=== PATIENT | male | born 1940 | race African-American/Black ===

== ENCOUNTER 2019-01-19 15:55 | Inpatient (IN) | payer OTHER ==
[~2019-01-19] VITALS: Ht 185.4 cm; Wt 93.4 kg
[2019-01-19] MEDS ORDERED: Solu-MEDROL 125mg Inj IVP ONE (16:00)
[2019-01-19] MEDS ORDERED: Ipratropium 0.02% Inh Soln 2.5ml UD HHN ONE (16:00)
--- NOTE | 2019-01-19 16:05 | NUR ---
ED Nurse Note: Patient wheelchaired into ED from home, c/o of shortness of breath and chest tightness. patient denies any pain. a/o x4.
[2019-01-19] MEDS ORDERED: VIAGRA100 MG PO (16:07)
[2019-01-19] MEDS ORDERED: SYMBICORT 1601 PUFFS INH (16:07)
[2019-01-19] MEDS ORDERED: POTASSIUM CL 225 MEQ PO (16:07)
[2019-01-19] MEDS ORDERED: PREDNISONE20 MG ORAL (16:07)
[2019-01-19] MEDS ORDERED: PROAIR HFA8.5 GM INH (16:07)
--- NOTE | 2019-01-19 16:07 | Emergency Room Report ---
History of Present Illness General Chief Complaint: Dyspnea/Respdistress Source: Patient Present Illness HPI Patient presents with several days worsening dyspnea and wheezing. He has a nonproductive cough at this time. He denies fevers or chills. He is not taking prednisone at this time. This is not his worst attack. When he was last seen for an attack this bad they wanted to keep him at [facility] however he left the hospital because they didn't have any beds at that time. Denies nausea , vomiting, diarrhea. He denies any calf pain or edema. He also denies chest pain at this time. He's been using his nebulizer frequently today and has not been helping. No NVD, dysuria, calf pain, edema, joint pain, headache, depression. Allergies: Coded Allergies: No Known Allergies (Unverified , 01/19/19) Patient History Past Medical History: see triage record Social History: Denies: smoking - smoked 5 years in the 60s Social History Narrative Reviewed Nursing Documentation: PMH: Agreed; PSxH: Agreed Nursing Documentation-PMH Past Medical History: No History, Except For Hx Hypertension: Yes Hx Asthma: Yes Review of Systems All Other Systems: negative except mentioned in HPI Physical Exam Vital Signs Date Time Temp Pulse Resp B/P (MAP) Pulse Ox O2 Delivery O2 Flow Rate FiO2 01/19/19 15:56 97.3 117 25 149/85 95 Room Air Sp02 EP Interpretation: reviewed, normal General Appearance: well appearing, no apparent distress, GCS 15 Head: normocephalic, atraumatic Eyes: bilateral eye normal inspection, bilateral eye PERRL, bilateral eye EOMI ENT: moist mucus membranes Neck: supple Respiratory: no respiratory distress, no retraction, no accessory muscle use, wheezing, expiration, inspiration Cardiovascular #1: tachycardia Cardiovascular #2: 2+ radial (R) Gastrointestinal: normal inspection, normal bowel sounds, non tender, no mass, non-distended Musculoskeletal: back normal, gait/station normal, normal range of motion, no calf tenderness Neurologic: alert, oriented x3, grossly normal Psychiatric: mood/affect normal Skin: normal inspection, warm/dry Medical Decision Making Diagnostic Impression: Primary Impression: COPD exacerbation Additional Impressions: Leukocytosis Qualified Codes: D72.828 - Other elevated white blood cell count Hypokalemia ER Course Patient presents with dyspnea, cough and wheezing. Differential includes acute microinfarction, COPD exacerbation, influenza, asthma exacerbation amongst others. Patient be evaluated with EKG, chest x-ray and labs. He'll be treated with breathing treatments and a methylprednisolone. EKG was sinus tachycardia left axis deviation nonspecific ST-T wave changes. Chest x-ray without definitive infiltrates. Leukocytosis. Elevated lactate. Based on elevated lactate and leukocytosis azithromycin is begun. Improved, still coughing, lungs clear. Discussed with Dr. Oneal. Admit telemetry. Laboratory Tests Test 01/19/19 16:04 01/19/19 17:49 01/19/19 18:15 White Blood Count 15.9 K/UL (4.8-10.8) H Red Blood Count 5.13 M/UL (4.70-6.10) Hemoglobin 16.2 G/DL (14.2-18.0) Hematocrit 47.6 % (42.0-52.0) Mean Corpuscular Volume 93 FL (80-99) Mean Corpuscular Hemoglobin 31.6 PG (27.0-31.0) H Mean Corpuscular Hemoglobin Concent 34.1 G/DL (32.0-36.0) Red Cell Distribution Width 11.1 % (11.6-14.8) L Platelet Count 251 K/UL (150-450) Mean Platelet Volume 6.1 FL (6.5-10.1) L Neutrophils (%) (Auto) 73.4 % (45.0-75.0) Lymphocytes (%) (Auto) 14.9 % (20.0-45.0) L Monocytes (%) (Auto) 7.9 % (1.0-10.0) Eosinophils (%) (Auto) 2.6 % (0.0-3.0) Basophils (%) (Auto) 1.2 % (0.0-2.0) Prothrombin Time 10.7 SEC (9.30-11.50) Prothrombin Time INR 1.0 (0.9-1.1) PTT 27 SEC (23-33) Sodium Level 141 MMOL/L (136-145) Potassium Level 3.1 MMOL/L (3.5-5.1) L Chloride Level 102 MMOL/L (98-107) Carbon Dioxide Level 27 MMOL/L (21-32) Anion Gap 12 mmol/L (5-15) Blood Urea Nitrogen 19 mg/dL (7-18) H Creatinine 1.2 MG/DL (0.55-1.30) Estimate Glomerular Filtration Rate mL/min (>60) Glucose Level 103 MG/DL (74-106) Lactic Acid Level 2.40 mmol/L (0.4-2.0) H 2.10 mmol/L (0.66-2.22) Calcium Level 9.7 MG/DL (8.5-10.1) Magnesium Level 2.0 MG/DL (1.8-2.4) Total Bilirubin 0.6 MG/DL (0.2-1.0) Aspartate Amino Transferase (AST) 14 U/L (15-37) L Alanine Aminotransferase (ALT) 24 U/L (12-78) Alkaline Phosphatase 78 U/L (46-116) Total Creatine Kinase 149 U/L (26-308) Pro-B-Type Natriuretic Peptide 70 pg/mL (0-125) Total Protein 8.1 G/DL (6.4-8.2) Albumin 3.8 G/DL (3.4-5.0) Globulin 4.3 g/dL Albumin/Globulin Ratio 0.9 (1.0-2.7) L Urine Color Pale yellow Urine Appearance Clear Urine pH 5 (4.5-8.0) Urine Specific [place] 1.010 (1.005-1.035) Urine Protein Negative (NEGATIVE) Urine Glucose (UA) Negative (NEGATIVE) Urine Ketones 1+ (NEGATIVE) H Urine Blood Negative (NEGATIVE) Urine Nitrite Negative (NEGATIVE) Urine Bilirubin Negative (NEGATIVE) Urine Urobilinogen Normal MG/DL (0.0-1.0) Urine Leukocyte Esterase Negative (NEGATIVE) Microbiology Date/Time Source Procedure Growth Status 01/19/19 16:04 Nasal Nares Influenza Types A,B Antigen (GRACIELA) - Final Complete EKG Diagnostic Results Rate: tachycardiac Rhythm: NSR ST Segments: no acute changes Rhythm Strip Diag. Results EP Interpretation: yes Rhythm: no PVC's, no ectopy, other - Sinus tachycardia 111 Chest X-Ray Diagnostic Results Chest X-Ray Diagnostic Results : Chest X-Ray Ordered: Yes # of Views/Limited/Complete: 1 View Indication: Shortness of Breath EP Interpretation: Yes Interpretation: no consolidation, no effusion, no pneumothorax, other - COPD Impression: Other Electronically Signed by: Electronically signed by Lele Allen MD Last Vital Signs Date Time Temp Pulse Resp B/P (MAP) Pulse Ox O2 Delivery O2 Flow Rate FiO2 01/20/19 02:26 112 20 100 Room Air 21 01/20/19 00:00 98.2 140/79 (99) Status: improved Disposition: ADMITTED INPATIENT Condition: Serious Lele Allen MD Jan 19, 2019 16:06
[2019-01-19] MEDS: Sodium Chloride 550 ML IV SCH ×2 (16:16→19:23)
[2019-01-19] MEDS: Albuterol ud Inhalation HHN SCH ×3 (16:20→16:51)
[2019-01-19 16:22] VITALS: BP 125/82
[2019-01-19 16:30] LABS: ANION GAP 12 mmol/L (5-15); BLOOD UREA NITROGEN 19 mg/dL (7-18); CALCIUM 9.7 MG/DL (8.5-10.1); CARBON DIOXIDE 27 MMOL/L (21-32); CHLORIDE 102 MMOL/L (98-107); CREATININE 1.2 MG/DL (0.55-1.30); POTASSIUM 3.1 MMOL/L (3.5-5.1); SODIUM 141 MMOL/L (136-145)
[2019-01-19 16:34] LABS: BASOPHILS % (AUTO) 1.2 % (0.0-2.0); EOSINOPHILS % (AUTO) 2.6 % (0.0-3.0); HEMATOCRIT 47.6 % (42.0-52.0); HEMOGLOBIN 16.2 G/DL (14.2-18.0); LYMPHOCYTES % (AUTO) 14.9 % (20.0-45.0); MEAN CORPUSCULAR VOLUME 93 FL (80-99); MONOCYTES % (AUTO) 7.9 % (1.0-10.0); NEUTROPHILS % (AUTO) 73.4 % (45.0-75.0); PLATELET COUNT 251 K/UL (150-450); RED BLOOD COUNT 5.13 M/UL (4.70-6.10); RED CELL DISTRIBUTION WIDTH 11.1 % (11.6-14.8); WHITE BLOOD COUNT 15.9 K/UL (4.8-10.8)
--- NOTE | 2019-01-19 16:36 | Diagnostic Imaging Report ---
Indication: Dyspnea Comparison: 11/16/2005 A single view chest radiograph was obtained. Findings: Cardiomediastinal appearance is within normal limits for age. The lungs are clear. Pulmonary vascularity is appropriate. The diaphragmatic contour is smooth and costophrenic angles are sharp. No pleural effusions are identified. The bones are unremarkable. Impression: No acute findings
[2019-01-19 16:41] LABS: ALANINE AMINOTRANSFERASE 24 U/L (12-78); ALBUMIN 3.8 G/DL (3.4-5.0); ALBUMIN/GLOBULIN RATIO 0.9 (1.0-2.7); ALKALINE PHOSPHATASE 78 U/L (46-116); ASPARTATE AMINO TRANSFERASE 14 U/L (15-37); BILIRUBIN,TOTAL 0.6 MG/DL (0.2-1.0); CREATINE KINASE 149 U/L (26-308)
[2019-01-19] MEDS ORDERED: Azithromycin 500 MG in D5W 275 ML IVPB ONE (17:00)
[2019-01-19] MEDS ORDERED: VENTOLIN HFA18 GM INH (17:50)
[2019-01-19] MEDS ORDERED: SYMBICORT 16010.2 G1 IH (17:51)
[2019-01-19] MEDS ORDERED: BENAZEPRIL HCL20 MG ORAL (17:52)
[2019-01-19] MEDS ORDERED: MONTELUKAST SOD10 MG ORAL (17:53)
[2019-01-19] MEDS ORDERED: HYDROCHLOROTHIA50 MG ORAL (17:53)
--- NOTE | 2019-01-19 17:57 | NUR ---
ED Nurse Note: lactic reflex drawn and sent down. provided water to the patient to help him void. Dr Allen is ok about patient drink water at bedside
[2019-01-19 18:20] VITALS: BP 124/70
--- NOTE | 2019-01-19 18:21 | NUR ---
ED Nurse Note: patient voided using urinal at bedside urine sent down
[2019-01-19 18:29] LABS: APPEARANCE,URINE CLEAR; BILIRUBIN, URINE NEGATIVE (NEGATIVE); COLOR,URINE PALE YELLOW; GLUCOSE, URINE (UA) NEGATIVE (NEGATIVE); KETONES,URINE 1+ (NEGATIVE); LEUKOCYTE ESTERASE ,URINE NEGATIVE (NEGATIVE); NITRITE,URINE NEGATIVE (NEGATIVE); PH,URINE 5 (4.5-8.0); PROTEIN,URINE NEGATIVE (NEGATIVE); UROBILINOGEN,URINE NORMAL MG/DL (0.0-1.0)
--- NOTE | 2019-01-19 19:11 | NUR ---
HAND-OFF: Report given to Luis BETANCUR rN patient is stable in bed, at bedside.
--- NOTE | 2019-01-19 19:12 | NUR ---
ED Nurse Note: endorsed that patient has room in 2E, per day charge nurse, glassware defect repairer rn will take the report
--- NOTE | 2019-01-19 19:39 | NUR ---
ED Nurse Note: Called Telemetry for report. Receiving RN unable to take report at this time.
[2019-01-19 20:00] VITALS: BP 145/94
--- NOTE | 2019-01-19 20:00 | NUR ---
TRANSFER TO FLOOR: Patient transferred to Telemetry 202-2 as ordered, per MD Enmanuel. Report given to NELDA Sullivan. Belongings list completed with receiving RN.
--- NOTE | 2019-01-19 20:05 | NUR ---
NURSE NOTES: Pt transferred from ER via gurney and independently ambulatory with steady gait to [facility]. Report received from Renee LUTZ. Belongings checked with patient and transferring RN. will take all belongings home except for socks and prescription glasses. Pt is awake, alert, and oriented x4. Pt is on room air and breathing is even and unlabored. No acute distress noted. Bilateral wheezing noted, O2 saturation 94% on room air. Pt denies shortness of breath at this time. IV site is left AC #20g and is asymptomatic, patent, and intact. Bed placed in lowest position with brake engaged, side rails up x2. at bedside. Pt provided with orientation to surroundings and hospital policy. Will contact MD Singer for admission orders.
--- NOTE | 2019-01-19 22:00 | NUR ---
NURSE NOTES: MD Oneal, covering for MD Singer, contacted and updated on patient condition and all abnormal labs. Admission orders received from MD Oneal, noted, and carried out. Pt in stable condition. Will continue to monitor.
[2019-01-20] VITALS: BP 140/79
[2019-01-20] MEDS ORDERED: cefTRIAXone 1 GM in D5W 55 ML IVPB SCH (02:00)
[2019-01-20] MEDS: Albuterol/Ipratropium 3ml neb HHN SCH ×7 (02:17→23:44)
[2019-01-20] MEDS ORDERED: Albuterol/Ipratropium 3ml neb HHN SCH (03:00)
[2019-01-20 04:00] VITALS: BP 131/76
[2019-01-20 08:00] VITALS: BP 139/76
[2019-01-20] MEDS: Azithromycin 250mg tab ORAL SCH (08:42)
[2019-01-20] MEDS: Solu-MEDROL 40mg Inj IVP SCH ×2 (08:43→21:42)
[2019-01-20] MEDS: cefTRIAXone 1 GM in D5W 55 ML IVPB SCH (08:49)
[2019-01-20 09:06] LABS: HEMATOCRIT 45.9 % (42.0-52.0); HEMOGLOBIN 15.6 G/DL (14.2-18.0); MEAN CORPUSCULAR VOLUME 93 FL (80-99); PLATELET COUNT 291 K/UL (150-450); RED BLOOD COUNT 4.95 M/UL (4.70-6.10); RED CELL DISTRIBUTION WIDTH 11.5 % (11.6-14.8); WHITE BLOOD COUNT 18.4 K/UL (4.8-10.8)
[2019-01-20 09:18] LABS: ANION GAP 7 mmol/L (5-15); BLOOD UREA NITROGEN 20 mg/dL (7-18); CALCIUM 9.5 MG/DL (8.5-10.1); CARBON DIOXIDE 26 MMOL/L (21-32); CHLORIDE 106 MMOL/L (98-107); CREATININE 1.2 MG/DL (0.55-1.30); POTASSIUM 3.5 MMOL/L (3.5-5.1); SODIUM 139 MMOL/L (136-145)
--- NOTE | 2019-01-20 10:59 | NUR ---
HAND-OFF: Report given to Kelly BULLARD. Pt resting in bed in stable condition. No acute distress noted. Endorsed plan of care.
--- NOTE | 2019-01-20 11:15 | NUR ---
NURSE NOTES: received patient sitting @ the edge of the bed. @ bedside. patient is verbally responsive. no c/o pain/discomfort. bed is in lowest position. siderails are upx2. call light is within reach. will cont to monitor.
[2019-01-20 12:00] VITALS: BP 117/83
--- NOTE | 2019-01-20 14:55 | History & Physical ---
History and Physical History & Physicial #[id number] COPDexacerbation hypoxemia HTN Samantha Oneal DO Jan 20, 2019 14:55
[2019-01-20 16:00] VITALS: BP 136/82
[2019-01-20] MEDS: Montelukast 10mg tablet ORAL SCH (16:28)
--- NOTE | 2019-01-20 18:52 | NUR ---
NURSE NOTES: resting comfortably. no significant change in condition. will cont to monitor.
--- NOTE | 2019-01-20 18:56 | NUR ---
HAND-OFF: Report given to cynthia.
--- NOTE | 2019-01-20 19:30 | NUR ---
NURSE NOTES: Report received from Kelly BULLARD. Pt is resting in bed in stable condition. Pt is awake, alert, and oriented x4. Pt is on room air and breathing is even and unlabored at this time. L sided upper lobe wheezing noted, O2 saturation 96%. Will call RT to administer breathing treatment as scheduled. IV site is asymptomatic, patent, and intact. Bed is placed in lowest position with brake engaged, side rails up x2. Call light and side table placed within reach. Will continue to monitor.
[2019-01-20 20:00] VITALS: BP 121/80
[2019-01-21] VITALS: BP 124/80
[2019-01-21] MEDS: Albuterol/Ipratropium 3ml neb HHN SCH ×6 (03:00→23:50)
[2019-01-21 04:00] VITALS: BP 114/63
--- NOTE | 2019-01-21 04:30 | History and Physical Report ---
DATE OF ADMISSION: 01/19/2019 REASON FOR ADMISSION: COPD exacerbation. HISTORY OF PRESENT ILLNESS: This is an elderly gentleman with a history of cough and shortness of breath. No fevers or chills, but increased wheezing, unable to get improvement from his nebulizers and inhalers, which he takes at home. He is currently not taking any prednisone prior to admission. He denies any chest pain, nausea, vomiting, or diarrhea. He was recently hospitalized at [facility] and they wanted to keep him, but he left the emergency room because they did have any beds and now is being admitted at our facility. PAST MEDICAL HISTORY: COPD with recurrent exacerbations and hypertension. MEDICATIONS: Prehospital and present medications reviewed, reconciled, and documented in electronic medical record by dose, frequency, and route. SOCIAL HISTORY: Quit smoking tobacco in the 1960s, otherwise negative for tobacco, alcohol, or drugs. REVIEW OF SYSTEMS: Previously negative for chest pain, shortness of breath, nausea, diarrhea, fever, chills, weight changes, blurred vision, double vision, , syncope, presycope, hemoptysis, hematochezia, melena, or hematuria. No focal deficits. PHYSICAL EXAMINATION: VITAL SIGNS: He is currently afebrile. His pulse is 97. His blood pressure is 117/83. He is 94% on room air. HEENT: Normocephalic and atraumatic. Oropharynx is moist. Nasal mucosa is moist. NECK: Supple. No lymphadenopathy. LUNGS: Bilateral wheezes. HEART: Regular rate and rhythm without murmur. ABDOMEN: Soft and nontender. Positive bowel sounds. EXTREMITIES: No edema. NEUROLOGIC: No focal neurologic deficits. SKIN: No skin rashes or lesions are present. LABORATORY DATA: His white count is , hemoglobin 15.6, and platelets are 291,000. Sodium is 139, potassium , chloride , bicarb 26, BUN 20, creatinine 1.2, and glucose is 107. A chest x-ray performed in the emergency room was negative. Laboratory values were negative. His culture for influenza was negative. ASSESSMENT AND PLAN: COPD exacerbation, hypertension, bronchospasm, and hypoxemia. PLAN: For the patient, he is to start on IV antibiotics. We will check a procalcitonin. He is currently on Solu-Medrol 40 mg q.12 hours, nebulizer treatments, O2 to maintain sats for %. Follow up his laboratories and replace the electrolytes accordingly. DVT prophylaxis. Supplemental oxygen and glycemic control as needed. We will continue to follow up the patient for the remainder of his hospital stay. Samantha Oneal D.O. DR: SARBJIT JOB#: [id number] CC:
[2019-01-21 07:33] LABS: HEMATOCRIT 43.4 % (42.0-52.0); HEMOGLOBIN 14.9 G/DL (14.2-18.0); MEAN CORPUSCULAR VOLUME 93 FL (80-99); PLATELET COUNT 281 K/UL (150-450); RED BLOOD COUNT 4.66 M/UL (4.70-6.10); RED CELL DISTRIBUTION WIDTH 11.7 % (11.6-14.8); WHITE BLOOD COUNT 17.6 K/UL (4.8-10.8)
--- NOTE | 2019-01-21 07:44 | NUR ---
HAND-OFF: Report given to NELDA Quiñones. Pt is resting in bed in stable condition. No acute distress noted. Endorsed plan of care.
[2019-01-21 07:55] LABS: ANION GAP 10 mmol/L (5-15); BLOOD UREA NITROGEN 27 mg/dL (7-18); CALCIUM 9.6 MG/DL (8.5-10.1); CARBON DIOXIDE 26 MMOL/L (21-32); CHLORIDE 104 MMOL/L (98-107); CREATININE 1.3 MG/DL (0.55-1.30); SODIUM 139 MMOL/L (136-145)
[2019-01-21 08:00] VITALS: BP 117/76
[2019-01-21] MEDS: Azithromycin 250mg tab ORAL SCH (08:53)
[2019-01-21] MEDS: Solu-MEDROL 40mg Inj IVP SCH ×2 (08:54→20:29)
[2019-01-21] MEDS: cefTRIAXone 1 GM in D5W 55 ML IVPB SCH (08:55)
[2019-01-21] MEDS ORDERED: NS 500ML ONE (09:45)
[2019-01-21 12:00] VITALS: BP 141/79
[2019-01-21 16:00] VITALS: BP 117/83
--- NOTE | 2019-01-21 18:40 | Pulmonology Progress Note ---
Assessment/Plan Assessment/Plan COPD exacerbation hypertension bronchospasm hypoxemia PLAN no change in steroids as he is wheezing nebs cxr 1-2 day check RA sat PFt at some point Subjective Constitutional: Reports: no symptoms HEENT: Repors: no symptoms Respiratory: Reports: shortness of breath, dyspnea on exertion, wheezing Cardiovascular: Reports: no symptoms Gastrointestinal/Abdominal: Reports: no symptoms Genitourinary: Reports: no symptoms Neurologic: Reports: no symptoms Allergies: Coded Allergies: No Known Allergies (Unverified , 01/19/19) Subjective still wheezing shortness of breath with ambulation no cp nv or bleeding on ra toelrating po Objective Last 24 Hour Vital Signs Date Time Temp Pulse Resp B/P (MAP) Pulse Ox O2 Delivery O2 Flow Rate FiO2 01/21/19 16:28 94 18 98 Room Air 21 01/21/19 16:18 92 16 92 Room Air 01/21/19 12:01 105 20 99 Room Air 21 01/21/19 11:50 103 20 95 Room Air 21 01/21/19 11:50 103 20 95 01/21/19 11:50 103 20 95 Room Air 21 01/21/19 09:00 Room Air 01/21/19 08:52 117/63 01/21/19 07:48 100 20 97 Room Air 21 01/21/19 07:35 97 18 92 Room Air 21 01/21/19 04:00 97.9 94 18 114/63 (80) 95 01/21/19 04:00 102 01/21/19 03:24 Room Air 21 01/21/19 03:24 Room Air 21 01/21/19 00:00 98.0 92 19 124/80 (95) 95 01/21/19 00:00 87 01/20/19 23:58 92 18 96 Room Air 21 01/20/19 23:44 90 18 91 Room Air 21 01/20/19 21:17 77 18 96 Room Air 21 01/20/19 21:14 75 18 96 Room Air 21 01/20/19 21:00 Room Air 01/20/19 20:00 90 01/20/19 20:00 98.4 95 19 121/80 (94) 96 01/20/19 19:51 94 18 98 Room Air 21 01/20/19 19:41 97 18 95 Room Air 21 Intake and Output 01/20/19 01/21/19 19:00 07:00 Intake Total 720 ml 240 ml Balance 720 ml 240 ml Intake Oral 720 ml 240 ml # Voids 3 # Bowel Movements 2 General Appearance: WD/WN Respiratory/Chest: expiratory wheezing Cardiovascular: normal rate, regular rhythm Abdomen: normal bowel sounds, soft, non tender, no organomegaly Neurologic/Psychiatric: no motor/sensory deficits, alert, oriented x 3 Lymphatic: no neck adenopathy Microbiology Date/Time Source Procedure Growth Status 01/19/19 16:04 Nasal Nares Influenza Types A,B Antigen (GRACIELA) - Final Complete Laboratory Tests 01/21/19 05:19: White Blood Count 17.6H, Red Blood Count 4.66L, Hemoglobin 14.9, Hematocrit 43.4 , Mean Corpuscular Volume 93, Mean Corpuscular Hemoglobin 31.9H, Mean Corpuscular Hemoglobin Concent 34.3, Red Cell Distribution Width 11.7, Platelet Count 281, Mean Platelet Volume 6.6, Neutrophils (%) (Auto) , Lymphocytes (%) ( Auto) , Monocytes (%) (Auto) , Eosinophils (%) (Auto) , Basophils (%) (Auto) , Differential Total Cells Counted 100, Neutrophils % (Manual) 91H, Lymphocytes % (Manual) 4L, Monocytes % (Manual) 5, Eosinophils % (Manual) 0, Basophils % ( Manual) 0, Band Neutrophils 0, Platelet Estimate Adequate, Platelet Morphology Normal, Red Blood Cell Morphology Normal, Sodium Level 139, Potassium Level 4.0 , Chloride Level 104, Carbon Dioxide Level 26, Anion Gap 10, Blood Urea Nitrogen 27H, Creatinine 1.3, Estimat Glomerular Filtration Rate , Glucose Level 128H, Calcium Level 9.6 Current Medications Medications (Trade) Dose Ordered Sig/Jean Route PRN Reason Start Time Stop Time Status Last Admin Dose Admin Acetaminophen (Tylenol) 650 mg Q4H PRN ORAL Mild Pain/Temp > 100.5 01/20/19 00:30 02/19/19 00:29 Albuterol/ Ipratropium (Albuterol/ Ipratropium) 3 ml Q4HRT HHN 01/20/19 01:15 01/25/19 02:59 01/21/19 16:18 Azithromycin (Zithromax) 500 mg DAILY ORAL 01/20/19 09:00 01/27/19 08:59 01/21/19 08:53 Benazepril HCl (Lotensin) 20 mg DAILY ORAL 01/20/19 09:00 02/19/19 08:59 01/21/19 08:52 Budesonide/ Formoterol Fumarate (Symbicort 160/ 4.5) 2 puff BIDRT INH 01/20/19 10:00 02/19/19 09:59 01/21/19 11:50 Ceftriaxone Sodium 1 gm/ Dextrose 55 ml @ 110 mls/hr Q24H IVPB 01/20/19 09:00 01/27/19 01:59 01/21/19 08:55 Hydrochlorothiazide (Hydrodiuril) 50 mg DAILY ORAL 01/20/19 09:00 02/19/19 08:59 01/21/19 08:53 Methylprednisolone Sodium Succinate (Solu-MEDROL) 40 mg EVERY 12 HOURS IVP 01/20/19 09:00 02/19/19 08:59 01/21/19 08:54 Montelukast Sodium (Singulair) 10 mg QPM ORAL 01/20/19 16:30 02/19/19 16:29 01/20/19 16:28 Potassium Chloride (K-Dur) 25 meq DAILY ORAL 01/20/19 09:00 02/19/19 08:59 01/21/19 08:53 Samantha Oneal DO Jan 21, 2019 18:40
[2019-01-21] MEDS: Montelukast 10mg tablet ORAL SCH (19:41)
--- NOTE | 2019-01-21 19:49 | NUR ---
NURSE NOTES: RECEIVED PATIENT SITTING IN BED, NO COMPLAINTS OF PAIN AT THIS TIME. FALL PRECAUTIONS IN PLACE: CALL LIGHT, BEDSIDE TABLE AND URINAL WITHIN REACH, BED IN LOW POSITION. PATIENT REFUSED TO PUT ON YELLOW SOCKS. FALL PROTOCOL EXPLAINED TO PATIENT, PATIENT STILL REFUSING. PLAN OF CARE REVIEWED WITH PATIENT AND FAMILY.
[2019-01-21 20:00] VITALS: BP 135/80
--- NOTE | 2019-01-21 22:32 | NUR ---
NURSE NOTES: NOTED ON A MONITOR PATIENT HAD 6 BEATS OF V-TACH. PATIENT ASLEEP AND ASYMPTOMATIC. DR. THOMAS NOTIFIED, NO NEW ORDERS. WILL CONTINUE TO MONITOR PATIENT.
[2019-01-22] VITALS: BP 131/78
[2019-01-22] MEDS: Albuterol/Ipratropium 3ml neb HHN SCH ×6 (03:35→23:18)
[2019-01-22 04:00] VITALS: BP 125/66
--- NOTE | 2019-01-22 07:24 | NUR ---
HAND-OFF: Report given to NELDA SHANKAR. PATIENT EATING BREAKFAST, NO SIGNS OF DISTRESS NOTED.
--- NOTE | 2019-01-22 07:39 | NUR ---
NURSE NOTES: received patient report from kenneth robles. patient is on bed awake. not in acute distress. talkative.comfortabale. bed is low and locked for safety. will follow plan of care.
--- NOTE | 2019-01-22 07:40 | NUR ---
CASE MANAGEMENT:REVIEW 78 YR OLD MALE FROM HOME CC; SOB AND CHEST TIGHTNESS SI:COPD EXACERBATION. LEUKOCYTOSIS. HYPOKALEMIA 97.4 117 25 149/85 95% ON RA WBC+15.9 K-3.1 LACTIC ACID+2.40 IS: DUONEB HHN X3 IV SOLUMEDROL 550CC NS BOLUS 1; NS BOLUS IV AZITHROMYCIN CHEST XRAY TELEMETRY 01/21/19 SI: COPD EXACERBATION 97.7 108 20 117/83 94% ON RA WBC+17.6 IS: IV ROCEPHIN Q24 DUONEB HHN Q4HRS RTC K-DUR PO QD HCTZ PO QD LOTENSIN PO QD IV SOLUMEDROL Q12 SYMBICORT INH BID SINGULAR PO QPM : TELEMETRY STATUS 01/22/19 SI: COPD EXACERBATION 97.6 86 18 125/66 95% ON RA IS: IV ROCEPHIN Q24 DUONEB HHN Q4HRS RTC K-DUR PO QD HCTZ PO QD LOTENSIN PO QD IV SOLUMEDROL Q12 SYMBICORT INH BID SINGULAR PO QPM : TELEMETRY STATUS DCP; PATIENT IS FROM HOME
[2019-01-22 08:00] VITALS: BP 120/69
[2019-01-22] MEDS: Azithromycin 250mg tab ORAL SCH (08:19)
[2019-01-22] MEDS: Solu-MEDROL 40mg Inj IVP SCH ×2 (08:21→21:20)
[2019-01-22] MEDS: cefTRIAXone 1 GM in D5W 55 ML IVPB SCH (08:22)
[2019-01-22 12:00] VITALS: BP 139/88
[2019-01-22 16:00] VITALS: BP 122/78
--- NOTE | 2019-01-22 16:41 | Pulmonology Progress Note ---
Assessment/Plan Assessment/Plan COPD exacerbation hypertension bronchospasm hypoxemia PLAN no change in steroids as he is wheezing nebs oral steroids soon Subjective Constitutional: Denies: fever Respiratory: Reports: productive cough, shortness of breath, dyspnea on exertion Allergies: Coded Allergies: No Known Allergies (Unverified , 01/19/19) Objective Last 24 Hour Vital Signs Date Time Temp Pulse Resp B/P (MAP) Pulse Ox O2 Delivery O2 Flow Rate FiO2 01/22/19 16:00 97.7 88 20 122/78 (93) 95 01/22/19 15:19 105 18 98 Room Air 21 01/22/19 15:09 107 20 93 Room Air 21 01/22/19 12:00 97.7 93 20 139/88 (105) 91 01/22/19 11:50 102 01/22/19 11:34 100 18 96 Room Air 21 01/22/19 11:22 90 20 91 Room Air 21 01/22/19 10:16 90 20 96 Room Air 21 01/22/19 10:15 92 20 96 Room Air 21 01/22/19 09:00 Room Air 01/22/19 08:20 120/69 01/22/19 08:10 82 18 97 Room Air 21 01/22/19 08:00 105 01/22/19 08:00 98.1 62 20 120/69 (86) 98 01/22/19 08:00 100 20 92 Room Air 21 01/22/19 04:00 86 01/22/19 04:00 97.6 85 18 125/66 (85) 95 01/22/19 03:46 96 18 96 Room Air 21 01/22/19 03:32 82 20 92 Room Air 01/22/19 00:00 97.8 87 18 131/78 (95) 95 01/22/19 00:00 83 01/21/19 23:50 Room Air 21 01/21/19 23:50 Room Air 21 01/21/19 21:00 Room Air 01/21/19 20:19 95 18 99 Room Air 21 01/21/19 20:09 96 20 93 Room Air 01/21/19 20:09 96 20 93 Room Air 21 01/21/19 20:09 96 20 93 Room Air 21 01/21/19 20:00 97.7 95 18 135/80 (98) 94 01/21/19 20:00 96 Intake and Output 2/24/19 2/25/19 18:59 06:59 Intake Total 360 ml 120 ml Output Total 400 ml Balance 360 ml -280 ml Intake Oral 360 ml 120 ml Output Urine Total 400 ml # Voids 2 # Bowel Movements 1 General Appearance: no acute distress Respiratory/Chest: decreased breath sounds, expiratory wheezing Cardiovascular: normal rate Current Medications Medications (Trade) Dose Ordered Sig/Jean Route PRN Reason Start Time Stop Time Status Last Admin Dose Admin Acetaminophen (Tylenol) 650 mg Q4H PRN ORAL Mild Pain/Temp > 100.5 01/20/19 00:30 02/19/19 00:29 Albuterol/ Ipratropium (Albuterol/ Ipratropium) 3 ml Q4HRT HHN 01/20/19 01:15 01/25/19 02:59 01/22/19 15:08 Azithromycin (Zithromax) 500 mg DAILY ORAL 01/20/19 09:00 01/27/19 08:59 01/22/19 08:19 Benazepril HCl (Lotensin) 20 mg DAILY ORAL 01/20/19 09:00 02/19/19 08:59 01/22/19 08:20 Budesonide/ Formoterol Fumarate (Symbicort 160/ 4.5) 2 puff BIDRT INH 01/20/19 10:00 02/19/19 09:59 01/22/19 10:15 Ceftriaxone Sodium 1 gm/ Dextrose 55 ml @ 110 mls/hr Q24H IVPB 01/20/19 09:00 01/27/19 01:59 01/22/19 08:22 Hydrochlorothiazide (Hydrodiuril) 50 mg DAILY ORAL 01/20/19 09:00 02/19/19 08:59 01/22/19 08:21 Methylprednisolone Sodium Succinate (Solu-MEDROL) 40 mg EVERY 12 HOURS IVP 01/20/19 09:00 02/19/19 08:59 01/22/19 08:21 Montelukast Sodium (Singulair) 10 mg QPM ORAL 01/20/19 16:30 02/19/19 16:29 01/21/19 19:41 Potassium Chloride (K-Dur) 25 meq DAILY ORAL 01/20/19 09:00 02/19/19 08:59 01/22/19 08:20 Emiliano Singer MD Jan 22, 2019 16:41
[2019-01-22] MEDS: Montelukast 10mg tablet ORAL SCH (17:14)
--- NOTE | 2019-01-22 19:15 | NUR ---
HAND-OFF: Report given to mariia robles.
--- NOTE | 2019-01-22 19:55 | NUR ---
NURSE NOTES: Recvd pr from Lotus LUTZ. Pt is AOX4, pt is on room air with no sign of sob or resp distress. Pt is ambulatory with steady gait. Pt denies pain, n/v. Will continue with plan of care.
[2019-01-22 20:00] VITALS: BP 130/92
[2019-01-23] VITALS: BP 123/80
[2019-01-23] MEDS: Albuterol/Ipratropium 3ml neb HHN SCH ×6 (03:00→23:00)
[2019-01-23 04:00] VITALS: BP 122/83
--- NOTE | 2019-01-23 07:57 | NUR ---
NURSE NOTES: Received patient from NELDA Garcia. Patient is resting in bed, eating breakfast. Awake and oriented x4 and verbally responsive. No signs of distress. Well-groomed, clean and dry. Bed in lowest position with two side rails up.Bed brakes engaged. Call light and bed side table within reach. Will continue to monitor and follow plan of care.
[2019-01-23 07:59] VITALS: BP 131/75
--- NOTE | 2019-01-23 08:10 | NUR ---
CASE MANAGEMENT:REVIEW 01/23/19 SI: COPD EXACERBATION. BRONCHOSPASMS 97.5 90 20 131/75 96% ON RA NO LABS FOR TODAY IS: IV SOLUMEDROL 40MG Q12 SINGULAR PO QPM SYMBICORT INH BID DUONEB HHN Q4HRS RTC AZITHROMYCIN PO QD IV ROCEPHIN Q24 LOTENSIN PO QD HCTZ PO QD : TELEMETRY STATUS DCP: PATIENT IS FROM HOME PLAN: WAS STILL WHEEZING YESTERDAY SO STEROIDS WERE NOT TAPERED
[2019-01-23] MEDS: Solu-MEDROL 40mg Inj IVP SCH (08:22)
[2019-01-23] MEDS: cefTRIAXone 1 GM in D5W 55 ML IVPB SCH (08:22)
[2019-01-23] MEDS: Azithromycin 250mg tab ORAL SCH (08:23)
--- NOTE | 2019-01-23 10:34 | Pulmonology Progress Note ---
Assessment/Plan Assessment/Plan COPD exacerbation, improved hypertension bronchospasm hypoxemia PLAN nebs oral steroids, abx dc plan tomorrow Subjective Constitutional: Reports: no symptoms Respiratory: Reports: shortness of breath, wheezing Allergies: Coded Allergies: No Known Allergies (Unverified , 01/19/19) Objective Last 24 Hour Vital Signs Date Time Temp Pulse Resp B/P (MAP) Pulse Ox O2 Delivery O2 Flow Rate FiO2 01/23/19 09:21 105 20 98 Room Air 21 01/23/19 09:21 105 20 98 Room Air 21 01/23/19 09:00 Room Air 01/23/19 08:23 131/75 01/23/19 08:01 77 20 99 Room Air 21 01/23/19 08:00 89 01/23/19 07:59 97.5 90 20 131/75 (93) 96 01/23/19 07:53 94 20 92 Room Air 21 01/23/19 04:00 97.4 92 18 122/83 (96) 96 01/23/19 04:00 77 01/23/19 03:10 Room Air 21 01/23/19 03:10 Room Air 21 01/23/19 00:00 90 01/23/19 00:00 98.0 86 19 123/80 (94) 97 01/22/19 23:32 90 18 98 Room Air 21 01/22/19 23:18 87 18 92 Room Air 21 01/22/19 23:18 87 18 92 Room Air 21 01/22/19 23:18 87 18 92 Room Air 21 01/22/19 21:00 Room Air 01/22/19 20:00 98.1 91 18 130/92 (105) 95 01/22/19 20:00 107 01/22/19 19:57 99 18 99 Room Air 21 01/22/19 19:47 100 20 94 Room Air 21 01/22/19 16:00 96 01/22/19 16:00 97.7 88 20 122/78 (93) 95 01/22/19 15:19 105 18 98 Room Air 21 01/22/19 15:09 107 20 93 Room Air 21 01/22/19 12:00 97.7 93 20 139/88 (105) 91 01/22/19 11:50 102 01/22/19 11:34 100 18 96 Room Air 21 01/22/19 11:22 90 20 91 Room Air 21 Intake and Output 01/22/19 01/23/19 19:00 07:00 Intake Total 840 ml Output Total 550 ml Balance 290 ml Intake Oral 730 ml IV Total 110 ml Output Urine Total 550 ml HEENT: atraumatic Respiratory/Chest: decreased breath sounds Cardiovascular: normal rate Current Medications Medications (Trade) Dose Ordered Sig/Jean Route PRN Reason Start Time Stop Time Status Last Admin Dose Admin Acetaminophen (Tylenol) 650 mg Q4H PRN ORAL Mild Pain/Temp > 100.5 01/20/19 00:30 02/19/19 00:29 Albuterol/ Ipratropium (Albuterol/ Ipratropium) 3 ml Q4HRT HHN 01/20/19 01:15 01/25/19 02:59 01/23/19 07:51 Azithromycin (Zithromax) 500 mg DAILY ORAL 01/20/19 09:00 01/27/19 08:59 01/23/19 08:23 Benazepril HCl (Lotensin) 20 mg DAILY ORAL 01/20/19 09:00 02/19/19 08:59 01/23/19 08:23 Budesonide/ Formoterol Fumarate (Symbicort 160/ 4.5) 2 puff BIDRT INH 01/20/19 10:00 02/19/19 09:59 01/23/19 09:20 Hydrochlorothiazide (Hydrodiuril) 50 mg DAILY ORAL 01/20/19 09:00 02/19/19 08:59 01/23/19 08:24 Montelukast Sodium (Singulair) 10 mg QPM ORAL 01/20/19 16:30 02/19/19 16:29 01/22/19 17:14 Potassium Chloride (K-Dur) 25 meq DAILY ORAL 01/20/19 09:00 02/19/19 08:59 01/23/19 08:24 Prednisone (predniSONE) 20 mg BID ORAL 01/23/19 18:00 02/22/19 17:59 Emiliano Chaudhry MD Jan 23, 2019 10:34
--- NOTE | 2019-01-23 11:32 | NUR ---
*-* INSURANCE *-* ALL CLINICALS,REVIEWS AND INTERQUAL HAS BEEN FAXED TO: IPA: [facility] AUTH#: PND NCM: PND F#: [phone] PLEASE FAX CLINICALS TO ABOVE #
[2019-01-23 12:00] VITALS: BP 127/84
[2019-01-23 16:00] VITALS: BP 136/87
[2019-01-23] MEDS: Montelukast 10mg tablet ORAL SCH (17:23)
--- NOTE | 2019-01-23 19:45 | NUR ---
HAND-OFF: Report given to NELDA Reynolds.
[2019-01-23 20:00] VITALS: BP 147/98
--- NOTE | 2019-01-23 20:00 | NUR ---
NURSE NOTES: Received pt in stable condition from Niesha LUTZ. pt sitting on bed, no acute distress during day, no pain reported by pt at this time. will continue to monitor
--- NOTE | 2019-01-24 00:36 | NUR ---
NURSE NOTES: pt in bed resting, no acute distress, sob noted, will continue to monitor
[2019-01-24] MEDS: Albuterol/Ipratropium 3ml neb HHN SCH ×4 (03:00→15:20)
[2019-01-24 04:00] VITALS: BP 107/75
--- NOTE | 2019-01-24 06:38 | NUR ---
CASE MANAGEMENT:REVIEW 01/24/19 SI: COPD EXACERBATION. BRONCHOSPASMS 98.0 75 19 107/75 95% ON RA IS: PREDNISONE 20MG PO BID SINGULAR PO QPM SYMBICORT INH BID DUONEB HHN Q4HRS RTC AZITHROMYCIN PO QD LOTENSIN PO QD HCTZ PO QD : TELEMETRY STATUS DCP: PATIENT IS FROM HOME PLAN: TRANSFER TO MED/SURG IMPROVING ~ HOPE TO DC TODAY
--- NOTE | 2019-01-24 07:15 | NUR ---
HAND-OFF: Report given to Suhail LUTZ.pt stable no change in condition during my shift. all needs met during my shift.
--- NOTE | 2019-01-24 07:16 | NUR ---
NURSE NOTES: Received patient from NELDA Reynolds. Patient is resting in bed. Awake and oriented x4 and verbally responsive. No signs of distress. Well-groomed, clean and dry. Bed in lowest position with two side rails up.Bed brakes engaged. Call light and bed side table within reach. Will continue to monitor and follow plan of care.
--- NOTE | 2019-01-24 07:39 | NUR ---
HAND-OFF: Report given to NELDA Aponte.
--- NOTE | 2019-01-24 07:45 | NUR ---
NURSE NOTES: Received patient from NELDA Hyde. Patient is resting in bed with breathing tx. Awake and oriented x4 and verbally responsive. No signs of distress. Bed in lowest position with two side rails up.Bed brakes engaged. Call light and bed side table within reach. Will continue to monitor and follow plan of care.
[2019-01-24 08:00] VITALS: BP 144/95
[2019-01-24] MEDS: Azithromycin 250mg tab ORAL SCH (09:03)
[2019-01-24 12:00] VITALS: BP 123/81
[2019-01-24 16:00] VITALS: BP 138/107
[2019-01-24] MEDS: Montelukast 10mg tablet ORAL SCH (16:32)
[2019-01-24] MEDS ORDERED: PREDNISONE20 MG ORAL (16:42)
[2019-01-24] MEDS ORDERED: ZITHROMAX250 MG ORAL (16:42)
--- NOTE | 2019-01-24 18:07 | Pulmonology Progress Note ---
Assessment/Plan Assessment/Plan COPD exacerbation, improved hypertension bronchospasm hypoxemia PLAN dc home oral steroids, abx Subjective Allergies: Coded Allergies: No Known Allergies (Unverified , 01/19/19) Objective Last 24 Hour Vital Signs Date Time Temp Pulse Resp B/P (MAP) Pulse Ox O2 Delivery O2 Flow Rate FiO2 01/24/19 16:00 98.1 98 18 138/107 (117) 97 01/24/19 15:30 84 20 98 Room Air 21 01/24/19 15:20 87 20 92 Room Air 21 01/24/19 12:00 97.9 97 18 123/81 (95) 98 01/24/19 11:31 87 20 99 Room Air 21 01/24/19 11:17 88 20 94 Room Air 21 01/24/19 09:46 96 20 94 Room Air 21 01/24/19 09:43 96 20 94 Room Air 21 01/24/19 09:04 144/95 01/24/19 08:02 Room Air 01/24/19 08:00 97.3 96 19 144/95 (111) 98 01/24/19 07:44 78 20 99 Room Air 21 01/24/19 07:34 89 20 93 Room Air 21 01/24/19 04:00 98.0 75 19 107/75 (86) 95 01/24/19 03:26 Room Air 21 01/24/19 03:26 Room Air 21 01/23/19 23:10 Room Air 21 01/23/19 23:09 Room Air 21 01/23/19 21:35 Room Air 21 01/23/19 21:34 Room Air 21 01/23/19 21:00 Room Air 01/23/19 20:00 98.7 102 20 147/98 (114) 99 01/23/19 19:55 95 20 96 Room Air 21 01/23/19 19:43 93 20 93 Room Air 21 Intake and Output 01/23/19 01/24/19 19:00 07:00 Intake Total 720 ml 200 ml Output Total 350 ml Balance 720 ml -150 ml Intake Oral 720 ml 200 ml Output Urine Total 350 ml Current Medications Medications (Trade) Dose Ordered Sig/Jean Route PRN Reason Start Time Stop Time Status Last Admin Dose Admin Acetaminophen (Tylenol) 650 mg Q4H PRN ORAL Mild Pain/Temp > 100.5 01/20/19 00:30 02/19/19 00:29 Albuterol/ Ipratropium (Albuterol/ Ipratropium) 3 ml Q4HRT HHN 01/20/19 01:15 01/25/19 02:59 01/24/19 15:20 Azithromycin (Zithromax) 500 mg DAILY ORAL 01/20/19 09:00 01/27/19 08:59 01/24/19 09:03 Benazepril HCl (Lotensin) 20 mg DAILY ORAL 01/20/19 09:00 02/19/19 08:59 01/24/19 09:04 Budesonide/ Formoterol Fumarate (Symbicort 160/ 4.5) 2 puff BIDRT INH 01/20/19 10:00 02/19/19 09:59 01/24/19 09:43 Hydrochlorothiazide (Hydrodiuril) 50 mg DAILY ORAL 01/20/19 09:00 02/19/19 08:59 01/24/19 09:04 Montelukast Sodium (Singulair) 10 mg QPM ORAL 01/20/19 16:30 02/19/19 16:29 01/24/19 16:32 Potassium Chloride (K-Dur) 25 meq DAILY ORAL 01/20/19 09:00 02/19/19 08:59 01/24/19 09:04 Prednisone (predniSONE) 20 mg BID ORAL 01/23/19 18:00 02/22/19 17:59 01/24/19 09:04 Emiliano Singer MD Jan 24, 2019 18:07
--- NOTE | 2019-01-24 18:10 | NUR ---
Homeless Discharge: Patient is being discharged. Awake, alert and oriented x 4. Patient verbalized understanding of discharge instructions. Friend was at bedside. belongings form was signed. Discharge instructions form is signed. All medical devices such as IV and ID band were removed. Patient ambulated out with all personal belongings with steady gait to private vehicle. Addendum: 01/24/19 at 1812 by Fadi Almanza RN *HOME DISCHARGE:
--- NOTE | 2019-01-25 12:28 | Discharge Summary ---
Discharge Summary Discharge Summary _ DATE OF ADMISSION: 01/19/2019 DATE OF DISCHARGE: 01/24/2019 DISCHARGED BY: Dr. Emiliano Singer BRIEF HOSPITAL COURSE: Patient is a 78-year-old gentleman, with history of cough and shortness of breath. There was no fever or chills but increased wheezing. He was unable to get improvement from his usual nebulizers and inhalers. He denied chest pain, nausea, vomiting or diarrhea. He was recently at [facility] but he left the emergency room because they did not have any beds. He has medical history significant for COPD with recurrent exacerbations and hypertension. On evaluation at ED, vital signs were stable, although heart rate was elevated to 117. He was saturating 95% on room air. Blood work showed leukocytosis, WBC was 16. Hemoglobin and hematocrit were stable. Potassium was 3.1. Lactic acid was elevated to 2.4. BUN 20, creatinine 1.2. ProBNP was 70. Urinalysis was negative. Influenza screen was negative. EKG showed sinus tachycardia with left axis deviation and nonspecific ST-T wave changes. Chest x-ray was without definite infiltrates. He was then admitted for evaluation of acute COPD exacerbation, hypertension, bronchospasm and hypoxemia. He was started on IV antibiotic ceftriaxone and p.o azithromycin. He was given Solu-Medrol. He was placed on nebulizer treatment. He was given potassium replacement. He continued to have wheezing. He was continued on IV steroids. He was given Symbicort and Montelukast. IV steroid was eventually tapered. Breathing improved. She was eventually discharged home on oral steroids and antibiotics. FINAL DIAGNOSES: Acute COPD exacerbation Hypertension Bronchospasm Hypoxemia DISPOSITION: Patient was discharged home. DISCHARGE MEDICATIONS: Refer to Discharge Medication List. DISCHARGE INSTRUCTIONS: Follow-up in a week. I have been assigned to complete a discharge summary on this account, I was not involved with the patient's management. Jazz Nath NP Jan 25, 2019 12:28
== END 2019-01-24 18:05 | disposition home or self-care (01) | DRG 192 ==
LOC: EDBEDREQ 16:20 → EMR 16:28 → 2E 17:30 → EDBEDREQ 17:43 → 2E 22:47
DX: J44.1 Chronic obstructive pulmonary disease with (acute) exacerbation (principal); I10 Essential (primary) hypertension; J98.01 Acute bronchospasm; R09.02 Hypoxemia; Z87.891 Personal history of nicotine dependence
CPT/HCPCS: 36415; 71045; 80048; 80053; 81003; 82550; 82962; 83605; 83735; 83880; 85007; 85025; 85610; 85730; 86710; 93005; 94640; 94664; 96361; 96365; 96375; 99285; J7620; J8499